=== PATIENT | female | born 1980 ===

== ENCOUNTER 2020-12-04 19:51 | Emergency (ER) | payer OTHER ==
[~2020-12-04] VITALS: Ht 154.9 cm; Wt 64.0 kg
[2020-12-04 20:04] VITALS: BP 152/94
== END 2020-12-04 22:35 | disposition home or self-care (01) ==
LOC: ED 20:10
DX: S46.912A Strain of unspecified muscle, fascia and tendon at shoulder and upper arm level, left arm, initial encounter (principal); X58.XXXA Exposure to other specified factors, initial encounter; Y93.89 Activity, other specified; Y92.89 Other specified places as the place of occurrence of the external cause; Y99.8 Other external cause status
CPT/HCPCS: 99283